=== PATIENT | female | born 1960 | race Caucasian/White ===

== ENCOUNTER 2018-02-06 14:46 | Inpatient (IN) | payer BC ==
[2018-02-06] MEDS ORDERED: Piperacillin/Tazobac ADVAN(*) 3.375 GM in NS 0.9% 100 ML* 100 ML IVPB ONE (17:35)
[2018-02-06] MEDS ORDERED: Ondansetron 40 MG VIAL* 2 MG/ML 20 ML VIAL IV PRN (17:37)
[2018-02-06] MEDS: NS 0.9% 1000 ML* 1,000 ML IV SCH (17:56)
[2018-02-06] MEDS ORDERED: Zosyn per Pharmacy* NOTE FOLLOW UP SCH (18:00)
[2018-02-06] MEDS: Morphine VIAL* 4 MG/ML VIAL (1 ml vial) IV PRN (18:01)
[2018-02-06] MEDS ORDERED: Acetaminophen TAB* 325 MG PO PRN (18:42)
--- NOTE | 2018-02-06 19:49 | CONS ---
CC: Dr. Nabil Manuel * SURGICAL CONSULTATION NOTE: DATE OF CONSULT: 02/06/18. LOCATION: The patient is seen in room 350. HISTORY OF PRESENT ILLNESS: My service is contacted by [facility] with concerns about Ms. Cleveland and the possibility of a diagnosis of acute cholecystitis. Recommendation by the surgical team was to transfer the patient to [facility]. This was performed and the patient is being evaluated by the hospitalist service who contacted us. The patient describes an onset of upper abdominal and right upper quadrant pain starting on Sunday. It was accompanied with decreased appetite, but no nausea, no vomiting and no fevers or chills. The patient noted that the symptoms worsened and presented to [facility] yesterday where she underwent imaging. She was felt to be stable for discharge and was discharged. Followup call this morning from the [place] team led them to be concerned about her status and asked her to come back to the hospital where she was admitted. The patient denies any previous similar symptoms. She continues to have right upper quadrant pain, minimal radiation to the back, no radiation to the shoulders. She is thirsty, but is not hungry. Denies any nausea or vomiting. States that her last bowel movement was Sunday and that was within normal caliber, normal color. Urine is also normal appearance. The patient underwent labs and a CAT scan. The report as well as the labs were reviewed. PAST MEDICAL HISTORY: Hypercholesterolemia, hypertension, chronic pain, and asthma. PAST SURGICAL HISTORY: and carpal tunnel release. MEDICATION LIST: Reviewed. ALLERGIES: She has no known drug allergies. SOCIAL HISTORY: She is nonsmoker. She drives a bus. REVIEW OF SYSTEMS: No shortness of breath. No chest pain. Abdominal pain as described. No dysuria. She has had colonoscopy, was told she had diverticulosis. She has fair exercise tolerance. No complications with anesthesia. PHYSICAL EXAM: Temperature 100.3, heart rate 104, blood pressure 142/83, respirations currently 16, O2 sat is 99%. She is alert and oriented x3. No apparent distress. Head, ears, eyes, nose, and throat: Normocephalic, atraumatic. Sclerae are anicteric. Her skin is dry. Lips are dry as well. She is not quite jaundiced, but dark in color. Her abdomen is soft, nondistended. Tender at the right upper quadrant with positive Valdez sign. No mass or hernia is noted. Well- healed surgical incision. No CVA tenderness. Rectal exam not performed. Extremities: Within normal limits. DIAGNOSTIC STUDIES/LAB DATA: Labs reviewed and it showed a white count of 12. LFTs reviewed and showed bilirubin mildly at 1.4, I do not have reference range from this lab; elevated transaminases, elevated alk phos of 216, amylase 22, lipase according to the chart is 11. Urinalysis reviewed. The patient underwent a CT scan of the abdomen and pelvis yesterday. The report is reviewed and remarks on a distended gallbladder with thickened wall about 5 mm and a trace pericholecystic fluid. IMPRESSION: Agree with diagnosis of acute cholecystitis. I believe the abnormal LFTs are secondary to this; however, I would like them repeated tomorrow where we can make comparison, although this will be a different lab. If they remain elevated, the patient would likely need an MRCP, but otherwise I feel this is acute cholecystitis picture and I would recommend laparoscopic cholecystectomy. I briefly outlined the details of the procedure to the patient. She agrees to proceed in this fashion and we will put her on the tentative schedule for tomorrow. She understands it would be my partner, Dr. Lim doing it. She will get antibiotics. Her case was discussed with the hospitalist service who has admitted her, started her on Zosyn, IV fluids, n.p.o. status. [id number]/[facility] #: [id number] MTDD
[2018-02-06] MEDS: ZOSYN 3.375 GM Q8H per EXTENDED INFUSION IVPB SCH ×2 (22:10)
[2018-02-06] MEDS: Heparin VIAL(*) 5000 UNITS/ML VIAL (FIVE THOUSAND) SUBCUT SCH (22:11)
[2018-02-06] MEDS: BI EST SCH (22:11)
[2018-02-06] MEDS: PROGEST SCH (22:11)
[2018-02-07] MEDS: Metoprolol Tartrate IV* 1 MG/ML 5 ML VIAL IV SCH ×4 (00:08→20:04)
[2018-02-07] MEDS: NS 0.9% 1000 ML* 1,000 ML IV SCH ×3 (02:33→20:57)
[2018-02-07] MEDS: Morphine VIAL* 4 MG/ML VIAL (1 ml vial) IV PRN ×5 (02:43→22:26)
[2018-02-07] MEDS: Heparin VIAL(*) 5000 UNITS/ML VIAL (FIVE THOUSAND) SUBCUT SCH ×3 (05:58→20:01)
[2018-02-07] MEDS: ZOSYN 3.375 GM Q8H per EXTENDED INFUSION IVPB SCH ×6 (06:00→22:21)
[2018-02-07 06:16] LABS: ABS Basophils 0 10^3/ul (0-0.2); ABS Eosinophils 0.2 10^3/ul (0-0.6); ABS Lymphocytes 0.9 10^3/ul (1.0-4.8); ABS Monocytes 0.6 10^3/ul (0-0.8); ABS Neutrophils 5.1 10^3/ul (1.5-7.7); ABS Nucleated RBC 0 10^3/ul; Eosinophil % 2.5 % (0-6); Hematocrit 33 % (35-47); Hemoglobin 11.4 g/dl (12.0-16.0); Lymphocyte % 13.5 % (25-47); Mean Corpuscular HGB Conc 35 g/dl (31-36); Mean Corpuscular Hemoglobin 34 pg (27-31); Mean Corpuscular Volume 97 fL (80-97); Nucleated Red Blood Cells % 0.1; Platelet Count 209 10^3/ul (150-450); Red Blood Count 3.37 10^6/ul (4.0-5.4); Red Cell Distribution Width 15 % (10.5-15); White Blood Count 6.8 10^3/ul (3.5-10.8)
--- NOTE | 2018-02-07 06:24 | HP ---
CC: Dr. Nabil Manuel; Dr. Hugh Kimball * HISTORY AND PHYSICAL: DATE OF ADMISSION: 02/06/18 PRIMARY CARE PROVIDER: Dr. Nabil Manuel. ATTENDING PHYSICIAN: Benedict Campa MD * (dictated by Jocy Boston NP) CHIEF COMPLAINT: Abdominal pain since Sunday. HISTORY OF PRESENT ILLNESS: Ms. Cleveland is a 57-year-old female with past medical history significant for asthma, chronic low back pain, hypertension, hypertriglyceridemia, who describes a sudden onset of upper abdomen and right upper quadrant pain starting on Sunday. The pain was accompanied by a decreased appetite with no associated nausea or vomiting, fevers or chills. Due to her symptoms, she went to [facility] on Sunday and received a Toradol which helped her pain for almost a day. She continued to have pain and was unable to get into her primary care provider's office. She went to the walk -in clinic at [place] where she had a CAT scan and was sent home. She continued to have pain, not really eating due to poor appetite, unable to take her medications. She received a call from the nurse practitioner at [place] with follow up on her CT exam and it was recommended that she be brought back to the hospital for admission for acute cholecystitis. The patient was admitted as a direct admission to [facility] for acute cholecystitis. The nurse practitioner then later discussed the case with Surgery, who recommended the patient be sent here for admission and formal surgical consultation. The patient denies any fevers, chills, chest pain, cough, shortness of breath, nausea, vomiting, diarrhea. She states she last moved her bowels 4 days ago. She denies urinary symptoms. According to the patient at [facility], her white count was around 16. At [place] today, her white count was 11.99. Her alk phos was 216, AST 427, ALT was 408, total bili 1.4. She had a negative urinalysis. She had a CT of her abdomen on 02/05/18 showing a distended gallbladder with thickened wall suspicious for acute cholecystitis. PAST MEDICAL HISTORY: 1. Asthma. 2. Chronic lower back pain. 3. Hypertension. 4. Hypertriglyceridemia. PAST SURGICAL HISTORY: 1. Status post . 2. Status post carpal tunnel release on the right. HOME MEDICATIONS: Include: 1. Bupropion 300 mg oral daily. 2. Saxenda 3 mg subcutaneous daily. 3. Bi-estrogen progesterone 0.5/50 mg lozenge, take one-half lozenge between cheek and gum twice daily. 4. Cymbalta 20 mg oral daily. 5. Norvasc 5 mg oral every evening. 6. [place]-3 one capsule oral daily. 7. Gabapentin 600 mg oral every evening. 8. Gabapentin 300 mg oral every morning. 9. Aleve 220 mg oral twice daily. 10. Percocet 10/325 one tablet oral every 4 hours as needed for pain. 11. Atenolol 25 mg oral twice daily. 12. Primidone 50 mg oral every morning. 13. Primidone 100 mg oral daily at bedtime. ALLERGIES: No known drug allergies. FAMILY HISTORY: The patient's mother had a history of coronary artery disease, diabetes, and colon cancer. SOCIAL HISTORY: The patient is a former smoker. She quit smoking 36 years ago. She occasionally drinks alcohol. Denies recreational drug use. Her niece , Angie will be her surrogate decision maker in the event she is unable to make decisions for herself. REVIEW OF SYSTEMS: An 11-point review of systems was performed. All the pertinent positives and negatives are mentioned in the history of present illness. The remaining review of systems is negative. PHYSICAL EXAMINATION GENERAL APPEARANCE: The patient is alert, pleasant, appears to be in no acute distress. VITAL SIGNS: Temperature 100.3, heart rate 104, respiratory rate 20, O2 sat 99 % on room air, blood pressure 142/83. HEENT: Normocephalic, atraumatic. Pupils are equal and reactive to light. Extraocular movements are intact. RESPIRATORY: There is no accessory muscle use. Lungs are clear to auscultation bilaterally. CARDIOVASCULAR: Regular rate and rhythm. S1, S2 present. There are no murmurs , rubs, or gallops. ABDOMEN: Soft. Tender in the right upper quadrant. Nondistended. There are hypoactive bowel sounds present x4. EXTREMITIES: There is no lower extremity edema. DP and PT pulses are 2+ and symmetric. MUSCULOSKELETAL: There is no clubbing or cyanosis noted. The patient exhibits good strength in all extremities. NEUROLOGICAL: The patient is alert and oriented x4. Cranial nerves II through XII are grossly intact. PSYCHOLOGICAL: The patient is calm and cooperative. SKIN: There are no rashes or abnormalities seen. DIAGNOSTIC STUDIES/LAB DATA: From earlier today at [facility], sodium 134, potassium 3.9, chloride 100, CO2 23, BUN 11, creatinine 0.9, glucose 94. White blood cell count 11.99, hemoglobin 12.4, hematocrit 34.9, platelet count 230. Alk phos was 216, AST 427, ALT 408, total bilirubin 1.4. Urinalysis negative. CT of the abdomen from 02/05/18 at [facility]. Radiologist impression: Distended gallbladder with thickened wall trace pericholecystic fluid and stones. Correlate clinically for cholecystitis. IMPRESSION: Ms. Cleveland is a 57-year-old female with past medical history significant for asthma, chronic low back pain, hypertension, hypertriglyceridemia, who presented initially to [facility] as a direct admission and then was transferred to [facility] for abdominal pain. The patient will be admitted as an inpatient for acute cholecystitis. ASSESSMENT/PLAN: 1. Acute cholecystitis. The patient will receive IV fluids. We will keep her n.p.o. She will receive Zosyn. At this time, she is not showing signs of sepsis. She is a little tachycardic, but has not been taking her atenolol. She has a low- grade fever of 100.3. She has no tachypnea. She has mildly elevated leukocytosis. I do not believe she is septic at this time. She will be seen in consultation by Dr. Hugh Kimball with General Surgery. Plan for a possible cholecystectomy tomorrow. The patient recently started taking Saxenda for weight loss. I question if this is contributing to her gallstones and acute cholecystitis. She has elevated LFTs, we will recheck LFTS in the morning. 2. Hypertension. I am going to hold the patient's atenolol and amlodipine while she is n.p.o. I am going to start metoprolol tartrate scheduled IV with hold parameters. 3. Fluids, electrolytes, and nutrition. The patient will be n.p.o. 4. Code status. Full code. 5. DVT prophylaxis. The patient is at moderate risk and will have subcu heparin. 6. Disposition. Inpatient. TIME SPENT: Time for this admission was approximately 60 minutes, greater than half of that was spent with the patient discussing medications, past medical history, the events leading up to her arrival today, performing a physical examination. The case has been reviewed with the attending, Dr. Campa, who agrees with the plan of care. Reviewed by PER MENDENHALL 02/09/182004 [id number]/[facility] #: [id number] MTDD
[2018-02-07 06:37] LABS: EGFR Non-African American 84.6 (>60)
[2018-02-07] MEDS: BI EST SCH ×2 (07:58→22:22)
[2018-02-07] MEDS: PROGEST SCH ×2 (07:58→22:22)
--- NOTE | 2018-02-07 14:13 | PN ---
Subjective Date of Service: 02/07/18 Interval History: Patient seen and examined this AM. Remains VERY tender to light palpation, diffusely in the RUQ. Denies n/v/d, no fever or chills. No chest pain or headache. No further complaints. Objective Active Medications: Acetaminophen (Tylenol Tab*) 650 mg PO Q4H PRN PRN Reason: FEVER/PAIN Heparin Sodium (Porcine) (Heparin Vial(*)) 5,000 units SUBCUT Q8HR [facility] Last Admin: 02/07/18 05:58 Dose: 5,000 units Sodium Chloride (Ns 0.9% 1000 Ml*) 1,000 mls @ 125 mls/hr IV PER RATE [facility] Last Admin: 02/07/18 11:19 Dose: 125 mls/hr Piperacillin Sod/Tazobactam (Sod 3.375 gm/ Sodium Chloride) 100 mls @ 25 mls/ hr IVPB Q8H [facility] Last Admin: 02/07/18 06:00 Dose: 25 mls/hr Metoprolol Tartrate (Lopressor Iv*) 5 mg IV Q6H [facility] Last Admin: 02/07/18 12:17 Dose: 5 mg Morphine Sulfate (Morphine Vial*) 2 mg IV Q2H PRN PRN Reason: PAIN Bi-Est 0.5/Progest (50 Mg Katarzyna) 1 dose .SEE ORDER BID [facility] Last Admin: 02/07/18 07:58 Dose: Not Given Ondansetron HCl (Zofran Inj*) 4 mg IV Q6H PRN PRN Reason: NAUSEA Pharmacy Consult (Zosyn Per Pharmacy*) 1 note FOLLOW UP .ZOSYN PER PHARMACY [facility] Vital Signs - 8 hr 02/07/18 02/07/18 02/07/18 07:34 08:00 09:13 Temperature 97.3 F Pulse Rate 79 Respiratory 16 18 18 Rate Blood Pressure 126/79 (mmHg) O2 Sat by Pulse 99 Oximetry 02/07/18 02/07/18 02/07/18 10:44 11:19 11:20 Temperature 98.9 F Pulse Rate 82 Respiratory 18 18 18 Rate Blood Pressure 124/71 (mmHg) O2 Sat by Pulse 100 Oximetry Oxygen Devices in Use Now: None Appearance: Alert, comfortable, NAD Ears/Nose/Mouth/Throat: NL Teeth, Lips, Gums, Mucous Membranes Moist Neck: NL Appearance and Movements; NL JVP, Trachea Midline Respiratory: Symmetrical Chest Expansion and Respiratory Effort, Clear to Auscultation Cardiovascular: NL Sounds; No Murmurs; No JVD, RRR, No Edema Abdominal: - - non-distended, very tender with guarding RU and RM quads Skin: No Rash or Ulcers Neurological: Alert and Oriented x 3 Nutrition: - - NPO Result Diagrams: 02/07/18 05:47 02/07/18 05:47 Assess/Plan/Problems-Billing Assessment: This is a 57 year old female that was transferred from [place] for acute cholecystitis, and transaminitis, plan for OR today. - Patient Problems (1) Acute cholecystitis Code(s): K81.0 - ACUTE CHOLECYSTITIS SNOMED Code(s): 68647105 Comment: - Plan for OR this afternoon - Pre-op EKG and labs evaluated, normal RSR, with no ischemia, with no ectopy and no ST segment changes, renal function and lytes normal - RCRI Score = 0.4% or Class I Risk of major cardiac event - Remains medically optimized for surgery, standard surgical and anesthesia risks apply and are outside the scope of this pre-operative medical evaluation. - Continue zosyn, pain control and NPO - Continue IVF (2) Transaminitis Code(s): R74.0 - NONSPEC ELEV OF LEVELS OF TRANSAMNS & LACTIC ACID DEHYDRGNSE SNOMED Code(s): 713241216 Comment: - 2/2 above, monitor post-operatively (3) Hyperbilirubinemia Code(s): E80.6 - OTHER DISORDERS OF BILIRUBIN METABOLISM SNOMED Code(s): 02347063 Comment: - 2/2 to above, monitor, should trend down post-operatively (4) Full code status Code(s): Z78.9 - OTHER SPECIFIED HEALTH STATUS SNOMED Code(s): 926473735 (5) DVT prophylaxis Code(s): XUF5571 - SNOMED Code(s): 612953372 Comment: - SCDs Counseling and/or Coordination of Care Minutes: Remain inpatient for immediate OR intervention this afternoon.
[2018-02-07] MEDS ORDERED: Naloxone* 0.4 MG/ML 1 ML VIAL IV PRN (15:47)
[2018-02-07] MEDS ORDERED: Propofol* 10 MG/ML 20 ML BTL IV PUSH ONE (15:59)
[2018-02-07] MEDS ORDERED: Lidocaine 2% PF * 5 ML VIAL ONE (15:59)
[2018-02-07] MEDS ORDERED: Rocuronium* 10 MG/ML VIAL ONE (15:59)
[2018-02-07] MEDS ORDERED: Dexamethasone IV* 4 MG/ML 1 ML (4 MG) ONE (15:59)
[2018-02-07] MEDS ORDERED: Bupivacaine 0.25% SDV* 30 ML ONE (16:11)
[2018-02-07] MEDS ORDERED: fentaNYL* 50 MCG/ML 2 ML VIAL (100 MCG VIAL) ONE (16:31)
[2018-02-07] MEDS ORDERED: Sodium Citrate/Citric Acid* 15 ML UDC ONE (16:38)
[2018-02-07] MEDS ORDERED: Glycopyrrolate IV* 0.2 MG/ML 1 ML VIAL ONE (17:08)
[2018-02-07] MEDS ORDERED: Neostigmine Methylsulfate* 1 MG/ML 10 ML VIAL (1 mg/ml) ONE (17:08)
[2018-02-07] MEDS ORDERED: hydrALAZINE IV* 20 MG/ML VIAL ONE (17:15)
[2018-02-07] MEDS ORDERED: fentaNYL* 50 MCG/ML 5 ML VIAL (250 MCG VIAL) ONE (18:09)
[2018-02-07] MEDS: fentaNYL* 50 MCG/ML 2 ML VIAL (100 MCG VIAL) IV PRN ×5 (18:16→19:14)
[2018-02-07] MEDS: Ketorolac INJ* 30 MG/ML 1 ML VIAL IV PUSH SCH (18:20)
[2018-02-07] MEDS ORDERED: Ketorolac INJ* 30 MG/ML 1 ML VIAL ONE (18:21)
[2018-02-07] MEDS ORDERED: oxyCODONE/Acetamin 5/325 MG* TAB PO PRN (19:30)
[2018-02-08] MEDS: Ketorolac INJ* 30 MG/ML 1 ML VIAL IV PUSH SCH ×2 (00:42→06:58)
[2018-02-08] MEDS: Metoprolol Tartrate IV* 1 MG/ML 5 ML VIAL IV SCH ×2 (00:44→06:18)
[2018-02-08] MEDS: Morphine VIAL* 4 MG/ML VIAL (1 ml vial) IV PRN (04:01)
[2018-02-08] MEDS: NS 0.9% 1000 ML* 1,000 ML IV SCH (04:56)
[2018-02-08] MEDS: ZOSYN 3.375 GM Q8H per EXTENDED INFUSION IVPB SCH ×2 (06:14)
[2018-02-08] MEDS: Heparin VIAL(*) 5000 UNITS/ML VIAL (FIVE THOUSAND) SUBCUT SCH (06:16)
--- NOTE | 2018-02-08 08:37 | OP ---
CC: Dr. Nabil Manuel * DATE OF OPERATION: 02/07/18 - ROOM #350 DATE OF : 58 SURGEON: Christian Lim MD. TABLE COVER FOLDER: Dinora Gilbert NP ANESTHESIOLOGIST: Dr. Daniel. ANESTHESIA: General anesthetic, local infiltration. PRE-OP DIAGNOSIS: Cholecystitis. POST-OP DIAGNOSIS: Cholecystitis. OPERATIVE PROCEDURE: Laparoscopic cholecystectomy. DESCRIPTION OF PROCEDURE: Patient was supine on the operative table after adequate general anesthetic, compression stockings, Shayna Hugger warmer and intravenous antibiotics. The abdomen was prepped with antiseptic, draped in a sterile fashion. Local infiltrative anesthesia was administered first at the umbilicus and subsequently at additional cannula sites. A small umbilical incision was created. Blunt port cannula was placed and the abdomen was insufflated and inspected. Additional cannulae 5 mm right subcostal in anterior axillary line and 12 mm subxiphoid were placed through small stab wounds under direct vision. Gallbladder was acutely inflamed. The omentum was adherent over top. Gallbladder wall was thickened. There were actually some areas that looked like patchy gangrene setting in. Gallbladder was tented upward. It was drained of its bile and then tented upward and areolar tissue was bluntly dissected away from the cystic duct and artery, which were clipped and divided. Gallbladder was taken off the liver bed. It cannot just peeled off in the inflammatory plane. Hemostasis was obtained by putting Surgicel and gauze and holding pressure for 10 minutes and when this was removed, the hemostasis was good. The operative field was well irrigated with about 3 to 4 L of warm saline solution. Free fluid was suctioned out. A YONNY drain was left in the gutter and up into the liver bed and sutured to the skin using 3 -0 Prolene. The gallbladder was retrieved through the epigastric site in a retrieval bag. The incision was opened to about 3 cm in size because of the size of the gallbladder. The operative field was additionally inspected and irrigated and everything was in good condition. The fascia of the two larger incisions were closed with 0 Vicryl and skin with 5-0 Vicryl in all cases followed by Steri-Strips. She tolerated the procedure well, was awakened, extubated, and brought to recovery in good condition. There were no complications. Drain is Jairon-Fregoso. Sponge and instrument counts were correct. Estimated blood loss 150 mL. [id number]/[facility] #: [id number] MTDCooper
[2018-02-08] MEDS: BI EST SCH (09:17)
[2018-02-08] MEDS: PROGEST SCH (09:17)
[2018-02-08 09:21] VITALS: BP 122/70
--- NOTE | 2018-02-09 01:00 | DS ---
CC: Dr. Christian Lim; Dr. Nabil Manuel DISCHARGE SUMMARY: DATE OF ADMISSION: 02/06/18 DATE OF DISCHARGE: 02/08/18 PRINCIPAL ADMITTING DIAGNOSIS: Acute cholecystitis. OPERATIVE PROCEDURE ON THIS ADMISSION: Laparoscopic cholecystectomy. HOSPITAL COURSE: The patient is a 57-year-old female, came to the hospital, was admitted the evening of 02/06/18 with evidence of acute cholecystitis. She was taken to the operating room on 02/07/18 w here she underwent laparoscopic cholecystectomy for what proved to be acute cholecystitis. She had a reas of patchy gangrene on the gallbladder. She had a drain maintained postoperatively and was maint ained on intravenous antibiotics. The following morning, she was feeling so much better and had no f urther fever. Her liver chemistries were coming down. She was tolerating oral intake. Her urine ou tput was good. The Jairon-Fregoso drainage was small, so the drain was removed. Abdomen was benign. She is discharged to home with instructions and we will continue on some oral antibiotics and we gabriella l follow up in the office in about a week. [id number]/[facility] #: [id number]
== END 2018-02-08 12:07 | disposition home or self-care (01) | DRG 263 ==
LOC: SSU 17:02
PROVIDERS: ADMIT Internal Medicine; ATTEND Surgery
PROC: 0FT44ZZ Resection of Gallbladder, Percutaneous Endoscopic Approach (ICD-10-PCS; principal; 2018-02-07 16:00)
DX: K81.0 Acute cholecystitis (principal); I10 Essential (primary) hypertension; G89.29 Other chronic pain; J45.909 Unspecified asthma, uncomplicated; R74.0 Nonspecific elevation of levels of transaminase and lactic acid dehydrogenase [LDH]; E80.6 Other disorders of bilirubin metabolism; E78.1 Pure hyperglyceridemia; Z79.1 Long term (current) use of non-steroidal anti-inflammatories (NSAID); Z79.899 Other long term (current) drug therapy; Z82.49 Family history of ischemic heart disease and other diseases of the circulatory system; Z83.3 Family history of diabetes mellitus; Z80.0 Family history of malignant neoplasm of digestive organs; Z87.891 Personal history of nicotine dependence
CPT/HCPCS: 36415; 80053; 85025; 88304; 93005; A9270-GY; J0360; J1100; J1644; J1885; J2270; J2543; J2704; J2710; J3010; J3490